=== PATIENT | female | born 1970 | race Caucasian/White ===

== ENCOUNTER → 2023-01-06 | Outpatient (CLI) | payer OTHER, MEDICARE ==
--- NOTE | 2023-01-06 10:56 | CT ---
EXAMINATION TYPE: CT abdomen pelvis w con CT DLP: 606.40 mGycm, Automated exposure control for dose reduction was used. DATE OF EXAM: 01/06/2023 10:35 AM COMPARISON: None CLINICAL INDICATION:Female, 52 years old with history of R10.13 EPIGASTRIC PAIN,K21.00; Epigastric pa in TECHNIQUE: Axial CT of the abdomen and pelvis. Sagittal and coronal reformats were created on a [employer] workstation. Contrast used:100 mL of Isovue 300 with IV Contrast, (none if empty) Oral contrast used: with Oral Contrast (none if empty) FINDINGS: LOWER CHEST: Partially visualized breast implants. ABDOMEN LIVER: Unremarkable GALLBLADDER AND BILE DUCTS: The gallbladder is not visualized and may be surgically absent. No biliar y ductal dilation. PANCREAS: No evidence of inflammation or ductal dilation. SPLEEN: Unremarkable. ADRENAL GLANDS: Unremarkable. KIDNEYS AND URETERS: No evidence of hydronephrosis or renal calculus. The ureters are unremarkable. PELVIS BLADDER: Unremarkable REPRODUCTIVE: The uterus is surgically absent. ABDOMEN & PELVIS STOMACH AND BOWEL: No evidence of bowel obstruction. The appendix is normal. The stomach is within no rmal limits. PERITONEUM/RETROPERITONEUM: No evidence of pneumoperitoneum or free fluid. VASCULATURE: No evidence of aortic aneurysm. MUSCULOSKELETAL: No acute osseous abnormalities, surgical changes to the lower spine. Hardware appear s intact. Dissecting changes present. At L4-5 and L5-S1. LYMPH NODES: No gross evidence for lymphadenopathy. SOFT TISSUE/ABDOMINAL WALL: Fat-containing umbilical hernia. IMPRESSION: No evidence for acute upper abdominal process to explain the patient's pain. The gallbladder appears surgically absent. No obstructive uropathy or renal calculi. The pancreas is within normal limits. Th e stomach is within normal limits.
== END | disposition home or self-care (01) ==
LOC: RADCTMAIN 08:07
PROVIDERS: ATTEND Family Medicine
DX: K21.00 Gastro-esophageal reflux disease with esophagitis, without bleeding (principal); Z90.49 Acquired absence of other specified parts of digestive tract
CPT/HCPCS: 74177; Q9967

== ENCOUNTER → 2023-01-13 | Outpatient (CLI) | payer OTHER, MEDICARE ==
--- NOTE | 2023-01-13 11:23 | FL ---
EXAMINATION TYPE: FL barium swallow DATE OF EXAM: 01/13/2023 10:39 AM COMPARISON: . 01/06/2023, 03/15/2013, CLINICAL INDICATION:Female, 52 years old with history of K21.00 GASTRO-ESOPHAGEAL REFLUX DIS WITH ESO PHAGIT; TECHNIQUE: The procedure was explained and patient history elicited. All patient questions were ans wered prior to start of procedure. Multiple spot fluoroscopic images of the esophagus were obtained a fter the oral ingestion of effervescent crystals and liquid barium as the contrast agent. Fluoroscopic time: 42 seconds Fluoroscopic images: 0 Radiographs taken: 99 DAP: 1042.7 cGycm2 FINDINGS: The esophagus demonstrates normal primary and secondary peristalsis. The esophageal mucosa is smooth without evidence of focal stricture, ulceration, or abnormal outpouching. Mild gastroesophageal dysm otility with tertiary contractions noted with reflux of contrast on prone imaging. IMPRESSION: 1. Mild Esophageal dysmotility. 2. Mild Esophageal reflux.
== END | disposition home or self-care (01) ==
LOC: RADUSWWP 09:44
PROVIDERS: ATTEND Family Medicine
DX: K21.00 Gastro-esophageal reflux disease with esophagitis, without bleeding (principal); K22.4 Dyskinesia of esophagus
CPT/HCPCS: 74220

== ENCOUNTER → 2023-04-04 | Outpatient (CLI) | payer OTHER, MEDICARE ==
--- NOTE | 2023-04-04 11:27 | CA ---
Exercise Nuclear Stress Test Report Name: Allie Yeung Exam Date: 04/04/2023 09:58 Exam Location: [facility] Ht (in): 68 Wt (lb): 150 BSA: 1.81 Ordering Phys: Hayder Castillo DO Referring Phys: Hayder Castillo DO Technologist: Ameya Richards Age: 52 Gender: F : 1970 Procedure CPT: Indications: R06.02 SHORTNESS OF BREATH, R00.2 ICD-10 Codes: Patient History: Medications: Meds past 24 hrs: Pretest Chest Pain: STRESS TEST Ramon Protocol Exercise Duration (min:sec): 06:[address] Depressions (mm): Angina Score: Moore Score: Resting HR (bpm): 87 Peak HR (bpm): 155 Resting BP (mmHg): 98 / 64 Peak BP (mmHg): 167 / 66 MPHR: 168 Target HR: 143 % MPHR: 92 METS: 8.6 Total Dose: Peak Dose: Atropine: Double Product: 64474 BP Response: Stress Termination: Reached target heart rate Stress Symptoms: No chest pain or symptoms Stress Summary: ECG ANALYSIS Resting ECG: Stress ECG: CONCLUSIONS Good exercise tolerance Normal EKG in response to exercise Dr. James Cesar MD (Electronically Signed) Final Date: 04 April 2023 11:27
--- NOTE | 2023-04-04 12:55 | NM ---
EXAMINATION TYPE: NM stress cardiolite complete DATE OF EXAM: 04/04/2023 COMPARISON: NONE CLINICAL INDICATION: Female, 52 years old with history of R06.02 SHORTNESS OF BREATH, R00.2; TECHNIQUE: After the intravenous administration of 10.3 mCi Tc 99m Sestamibi - Rest images obtained 70 minutes post injection. The patient exercised using a MELANIE protocol and 1 minute prior to peak exercise was injected with 24.7 mCi Tc 99m Sestamibi - Stress images obtained 35 minutes post injecti on. FINDINGS: Targeted heart rate (143 BPM) was achieved during performance of the study (155 bpm achieved). Total exercise time 6 minutes 50 seconds. Review of stress and rest SPECT images demonstrates a small area of reversibility along the midanteri or wall. However, there is no correlate on the polar maps. No other discrete reversibility is seen. G ated analysis shows normal wall motion with an estimated left ventricular ejection fraction of 79 %. TID is calculated at 0.88, within normal limits. IMPRESSION: Small area of reversibility along the mid anterior wall suspected to represent attenuation artifact r ather than inducible ischemia as there is no corroborative finding on polar maps. Clinically correlat e. No other suspicious area of reversibility is seen
--- NOTE | 2023-04-04 18:10 | CA ---
Transthoracic Echo Report Name: Allie Yeung Age: 52 Gender: F : 1970 Exam Date: 04/04/2023 08:28 Exam Location: [facility] Ht (in): 68 Wt (lb): 150 Ordering Physician: Hayder Castillo DO Attending/Referring Phys: Hayder Castillo DO Fractionation Supervisor Caroline Morse RDCS Procedure CPT: Indications: R06.02 SHORTNESS OF BREATH, R00.2 Cardiac Hx: Technical Quality: Fair Contrast 1: Total Dose (mL): Contrast 2: Total Dose (mL): MEASUREMENTS (Male / Female) Normal Values 2D ECHO LV Diastolic Diameter PLAX 4.0 cm 4.2 - 5.9 / 3.9 - 5.3 cm LV Systolic Diameter PLAX 2.5 cm IVS Diastolic Thickness 0.9 cm 0.6 - 1.0 / 0.6 - 0.9 cm LVPW Diastolic Thickness 0.9 cm 0.6 - 1.0 / 0.6 - 0.9 cm LV Relative Wall Thickness 0.5 RV Internal Dim ED PLAX 2.3 cm LA Volume 39.7 cm??? 18 - 58 / 22 - 52 cm??? LA Volume Index 21.9 cm???/m??? 16 - 28 cm???/m??? M-MODE Aortic Root Diameter MM 2.6 cm LA Systolic Diameter MM 2.4 cm LA Ao Ratio MM 0.9 AV Cusp Separation MM 1.6 cm DOPPLER AV Peak Velocity 138.7 cm/s AV Peak Gradient 7.7 mmHg AV Mean Velocity 95.9 cm/s AV Mean Gradient 4.1 mmHg AV Velocity Time Integral 31.9 cm LVOT Peak Velocity 96.0 cm/s LVOT Peak Gradient 3.7 mmHg LVOT Velocity Time Integral 21.1 cm MV Area PHT 2.9 cm??? Mitral E Point Velocity 82.0 cm/s Mitral A Point Velocity 83.1 cm/s Mitral E to A Ratio 1.0 MV Deceleration Time 258.7 ms MV E' Velocity 7.1 cm/s Mitral E to MV E' Ratio 11.6 TR Peak Velocity 234.5 cm/s TR Peak Gradient 22.0 mmHg Right Ventricular Systolic Press 25.9 mmHg FINDINGS Left Ventricle Normal Left ventricular size, wall thickness, systolic function with no obvious regional wall motion abnormalities. Normal Left ventricular diastolic filling pattern. Left ventricular ejection fraction is estimated at 55-60 %. Right Ventricle Normal right ventricular size and function. Right ventricular systolic pressure within normal limits. Right Atrium Normal right atrial size. Left Atrium Normal left atrial size. Mitral Valve Structurally normal mitral valve. No mitral stenosis, regurgitation or prolapse. Aortic Valve Trileaflet aortic valve. No aortic valve stenosis or regurgitation. Tricuspid Valve Structurally normal tricuspid valve. Mild tricuspid regurgitation. Pulmonic Valve Structurally normal pulmonic valve. Trace pulmonic regurgitation. Pericardium No pericardial effusion. Aorta Normal size aortic root and proximal ascending aorta. CONCLUSIONS Normal LV systolic function and normal LV filling pattern No significant valvular abnormalities Normal pulmonary artery systolic pressure Previewed by: Dr. James Cesar MD (Electronically Signed) Final Date: 04 April 2023 18:09
== END | disposition home or self-care (01) ==
LOC: RADNMMAIN 08:00
PROVIDERS: ATTEND Family Medicine
DX: R00.2 Palpitations (principal); R06.02 Shortness of breath; R07.2 Precordial pain
CPT/HCPCS: 93017; 93306; 78452; A9500